=== PATIENT | male | born 1995 | race Caucasian/White ===

== ENCOUNTER 2021-06-21 11:01 | Emergency (ER) | payer OTHER ==
[2021-06-21] MEDS ORDERED: NAPROXEN500 MG PO (13:10)
== END 2021-06-21 13:50 | disposition home or self-care (01) ==
LOC: FER 11:01
DX: R07.89 Other chest pain (principal); F17.210 Nicotine dependence, cigarettes, uncomplicated
CPT/HCPCS: 71046; 93005